=== PATIENT | male | born 1970 | race Asian ===

== ENCOUNTER 2019-08-25 03:35 | Emergency (ER) | payer BC ==
[~2019-08-25] VITALS: Ht 172.7 cm; Wt 83.9 kg
[2019-08-25 03:43] VITALS: BP 152/96; Ht 172.7 cm; Wt 83.9 kg
== END 2019-08-25 04:59 | disposition home or self-care (01) ==
LOC: ED 03:35
DX: S05.02XA Injury of conjunctiva and corneal abrasion without foreign body, left eye, initial encounter (principal); X58.XXXA Exposure to other specified factors, initial encounter; Y93.89 Activity, other specified; Y92.89 Other specified places as the place of occurrence of the external cause; Y99.8 Other external cause status